=== PATIENT | female | born 1950 | race Caucasian/White ===

== ENCOUNTER 2023-10-24 09:05 | Outpatient (OUT) | payer MEDICARE, SELFPAY ==
[2023-10-24 09:32] LABS: Basophils Percent Auto 0.9 % (0.2-2.0); Eosinophils Absolute Auto 0.1 10^3/uL (0.0-0.7); Eosinophils Percent Auto 2.4 % (0.9-7.0); Hematocrit 41.4 % (36.0-48.0); Hemoglobin 13.4 g/dL (12.0-16.0); Immature Granulocytes Abs Auto 0.01 10^3/uL (0.00-0.03); Immature Granulocytes Pct Auto 0.2 % (0.0-0.5); Lymphocytes Absolute Auto 0.6 10^3/uL (1.2-3.8); Lymphocytes Percent Auto 15.1 % (20.5-60.0); Mean Corpuscular HGB Conc 32.4 g/dL (29.9-35.2); Mean Corpuscular Hemoglobin 30.2 pg (26.7-34.0); Mean Corpuscular Volume 93.2 fL (81.0-99.0); Mean Platelet Volume 10.8 fL (9.5-13.5); Monocytes Absolute Auto 0.5 10^3/uL (0.3-0.8); Monocytes Percent Auto 11.1 % (1.7-12.0); Neutrophils Percent Auto 70.3 % (43.0-75.0); Platelet Count 183 10^3/uL (150-450); Red Blood Count 4.44 10^6/uL (4.20-5.40); White Blood Count 4.3 10^3/uL (4.0-11.0)
[2023-10-24 10:37] LABS: Alanine Aminotransferase 33 U/L (14-59); Albumin Level 3.6 g/dL (3.4-5.0); Alkaline Phosphatase 87 U/L (46-116); Anion Gap 14.5; Aspartate Amino Transferase 23 U/L (15-37); BUN Creatinine Ratio 23.6; Bilirubin Direct 0.1 mg/dL (0.0-0.2); Bilirubin Total 0.3 mg/dL (0.2-1.0); Calcium 9.7 mg/dL (8.5-10.1); Carbon Dioxide 26.8 mmol/L (21.0-32.0); Chloride 108 mmol/L (98-107); Chol HDL Ratio 3.1; Cholesterol 226 mg/dL (<=200); Estimated GFR (African America 52 (>=60); Estimated GFR (Non-African Ame 43 (>=60); Globulin 3.6 g/dL; Glucose 93 mg/dL (74-106); HDL Cholesterol 74 mg/dL (40-60); Potassium 4.3 mmol/L (3.5-5.1); Sodium 145 mmol/L (136-145); Total Protein 7.2 g/dL (6.4-8.2); Triglycerides 60 mg/dL (<=150)
== END 2023-10-24 09:06 | disposition home or self-care (01) ==
LOC: LAB 09:11
PROVIDERS: PCP Family Medicine; Visit Provider Family Medicine
DX: E78.5 Hyperlipidemia, unspecified (principal); Z79.899 Other long term (current) drug therapy
CPT/HCPCS: 36415; 80048; 80061; 80076; 85025